=== PATIENT | female | born 1970 | race African-American/Black ===

== ENCOUNTER 2017-01-29 03:11 | Inpatient (IN) | payer MEDICARE, MEDICAID ==
[~2017-01-29] VITALS: Ht 160 cm; Wt 116.6 kg
[~2017-01-29 03:11] MED LIST: BENA40TA3 PO; CARI350T PO; HYDR-2510 PO; METF500T4 PO; TOPXL5 PO
[2017-01-29] MEDS ORDERED: METHYLPREDNISOLONE SOD SUCC 125 MG/2 ML VIAL IV STA (03:36)
[2017-01-29] MEDS ORDERED: IPRATROPIUM BROMIDE (0.02%) 0.5MG/2.5ML NEB HHN STA (03:36)
[2017-01-29] MEDS ORDERED: ALBUTEROL (0.083%) 2.5MG/3ML NEB HHN STA (03:36)
[2017-01-29] MEDS ORDERED: NITROGLYCERIN OINT 1GM/INCH UDPKT TD STA (03:36)
[2017-01-29] MEDS ORDERED: MAGNESIUM 2 G PREMIX 50 ML IV ONE (03:45)
[2017-01-29 04:06] LABS: BASOPHILS % 0.9 % (0.0-2.0); EOSINOPHILS % 0.3 % (0.0-5.0); HEMATOCRIT. 40.6 % (36.0-48.0); HEMOGLOBIN. 13.3 g/dL (12.0-16.0); MEAN CORPUSCULAR HEMOGLOBIN 28.2 pg (28.0-32.0); MEAN CORPUSCULAR HGB CONC 32.7 g/dL (31.0-37.0); MEAN CORPUSCULAR VOLUME 86.5 fL (81.0-99.0); MEAN PLATELET VOLUME 8.1 fl (7.4-10.4); MONOCYTES % 10.1 % (2.0-8.0); NEUTROPHILS % 80.7 % (40.0-76.0); PLATELET 262 x1000/uL (130-400); RED BLOOD CELL COUNT 4.69 mill/uL (4.2-5.4); WHITE BLOOD COUNT 9.4 x1000/uL (4.5-11.0)
[2017-01-29 04:13] LABS: PROTHROMBIN TIME 10.3 sec
[2017-01-29 04:15] LABS: HCG SCREEN NEGATIVE
[2017-01-29 04:19] LABS: CLARITY URINE CLEAR (CLEAR); COLOR URINE YELLOW (YELLOW); GLUCOSE URINE NEGATIVE (NEGATIVE); KETONES URINE NEGATIVE (NEGATIVE); LEUKOCYTE ESTERASE URINE NEGATIVE (NEGATIVE); NITRITE URINE NEGATIVE (NEGATIVE); OCCULT BLOOD URINE NEGATIVE (NEGATIVE); PH URINE 5.5 (4.5-8.0); PROTEIN URINE NEGATIVE (NEGATIVE); SPECIFIC GRAVITY URINE 1.007 (1.005-1.030); UROBILINOGEN URINE 0.2 E.U./dL (0.2-1.0)
[2017-01-29 04:29] LABS: ALANINE AMINOTRANSFERASE 45 IU/L (13-61); ALBUMIN 3.2 g/dL (3.4-5.0); ANION GAP 13; CALCIUM 8.4 mg/dL (8.5-10.1); CARBON DIOXIDE 28 mEq/L (21-32); CHLORIDE 104 mEq/L (98-107); INDEX HEMOLYSI 1 (1-3); INDEX ICTERIC 1 (1-4); INDEX LIPEMIC 1 (1-3); LIPASE 635 IU/L (73-393); TROPONIN I 0.09 ng/mL (0.00-0.04); UREA NITROGEN BLOOD 34 mg/dL (7-21); eGFR 33 mL/min (>60)
[2017-01-29 04:37] LABS: NT PRO B-TYPE NATRIURETIC PEP 3995 pg/mL (5-125)
[2017-01-29] MEDS ORDERED: FUROSEMIDE 40MG/4ML VIAL IVP ONE (05:00)
[2017-01-29] MEDS ORDERED: LORAZEPAM 2MG/ML CPJ IV ONE (05:00)
[2017-01-29] MEDS ORDERED: ASPIRIN 325MG TABLET PO ONE (05:15)
[2017-01-29] MEDS ORDERED: LEVOFLOXACIN 500MG PREMIX 100 ML IV ONE (05:30)
[2017-01-29] MEDS ORDERED: HYDRALAZINE 20MG/ML VIAL IV ONE (08:00)
[2017-01-29] MEDS ORDERED: LORAZEPAM 2MG/ML CPJ IV PRN (08:15)
[2017-01-29] MEDS ORDERED: CLONIDINE 0.2MG TABLET PO ONE (08:15)
[2017-01-29] MEDS ORDERED: ACETAMINOPHEN 325MG TABLET PO PRN (08:15)
[2017-01-29] MEDS ORDERED: NA PHOS,M-B/NA PHOS,DI-BA ENEMA 118ML PR PRN (08:15)
[2017-01-29] MEDS ORDERED: MAGNESIUM/ALUMINUM HYDROXIDE/SIMETHICONE 30ML UDC PO PRN (08:15)
[2017-01-29] MEDS ORDERED: DIPHENHYDRAMINE 50MG/ML VIAL IV PRN (08:15)
[2017-01-29] MEDS ORDERED: IPRATROPIUM/ALBUTEROL 0.5-3(2.5)MG/3ML NEB INH PRN (08:15)
[2017-01-29 09:20] LABS: *AMPHETAMINES SCREEN URINE NEGATIVE (NEGATIVE); *BARBITURATES SCREEN URINE NEGATIVE (NEGATIVE); *BENZODIAZEPINES SCREEN URINE NEGATIVE (NEGATIVE); CANNABINOID URINE SCREEN NEGATIVE (NEGATIVE); ECSTASY MDMA SCREEN URINE NEGATIVE (NEGATIVE); METHADONE URINE SCREEN NEGATIVE (NEGATIVE); OPIATES URINE SCREEN NEGATIVE (NEGATIVE); PHENCYCLIDINE URINE SCREEN NEGATIVE (NEGATIVE)
[2017-01-29 09:21] LABS: *COCAINE SCREEN URINE PRESUMTIVE POSITIVE (NEGATIVE)
[2017-01-29] MEDS ORDERED: HYDROCHLOROTHIAZIDE 50MG TABLET PO SCH (12:00)
[2017-01-29 12:30] LABS: CALCIUM 8.4 mg/dL (8.5-10.1)
[2017-01-29] MEDS ORDERED: METOPROLOL TARTRATE 25MG TABLET PO SCH (13:00)
[2017-01-29] MEDS: FUROSEMIDE 40MG/4ML VIAL IV SCH (13:50)
[2017-01-29] MEDS: HYDROMORPHONE HCL/PF 2MG/ML CPJ IV PRN (13:50)
[2017-01-29] MEDS: ASPIRIN 81MG EC TABLET PO SCH (13:50)
[2017-01-29] MEDS: ENOXAPARIN 40MG/0.4ML SYR SUBCUT SCH (13:52)
[2017-01-29] MEDS ORDERED: MEDICATION NOT ON FORMULARY EA (Benazepril Hcl 40 MG) PO SCH (17:00)
[2017-01-29] MEDS ORDERED: METFORMIN HCL 500MG TABLET PO SCH (17:15)
[2017-01-29] MEDS: ONDANSETRON HCL 4MG/2ML VIAL IV PRN (19:17)
[2017-01-29] MEDS: CARISOPRODOL 350 MG TABLET PO SCH (20:43)
[2017-01-29] MEDS ORDERED: LOSA50TA20 PO (20:58)
[2017-01-29] MEDS ORDERED: THROAT LOZENGES-BENZOCAINE/MENTH/CETYLPYRD CL LOZENGES MM PRN (21:00)
[2017-01-29] MEDS: BLOOD SUGAR DIAGNOSTIC STRIP TEST SCH (21:00)
[2017-01-29] MEDS: INSULIN LISPRO 100 UNITS/ML SUBCUT SCH (21:00)
[2017-01-29] MEDS ORDERED: BENAZEPRIL 20MG TABLET PO SCH (21:00)
[2017-01-29] MEDS ORDERED: DEXTROSE 50% WATER 50ML SYRINGE IV PRN (21:00)
[2017-01-29] MEDS: LOSARTAN POTASSIUM 50 MG TABLET PO SCH (21:04)
[2017-01-30 00:14] LABS: CREATINE KINASE MB FRACTION 3.2 ng/mL (0.5-3.6); TROPONIN I 0.08 ng/mL (0.00-0.04)
[2017-01-30] MEDS: CLONIDINE 0.1MG TABLET PO PRN ×2 (00:15→20:10)
[2017-01-30] MEDS ORDERED: LEVOFLOXACIN 500MG PREMIX 100 ML IV SCH (05:30)
[2017-01-30] MEDS: BLOOD SUGAR DIAGNOSTIC STRIP TEST SCH ×4 (05:54→20:16)
[2017-01-30] MEDS: INSULIN LISPRO 100 UNITS/ML SUBCUT SCH ×4 (06:29→20:16)
[2017-01-30 06:45] LABS: BASOPHILS % 0.2 % (0.0-2.0); EOSINOPHILS % 0.1 % (0.0-5.0); HEMATOCRIT. 42.9 % (36.0-48.0); HEMOGLOBIN. 13.6 g/dL (12.0-16.0); LYMPHOCYTES % 7.5 % (20.0-50.0); MEAN CORPUSCULAR HEMOGLOBIN 27.9 pg (28.0-32.0); MEAN CORPUSCULAR HGB CONC 31.8 g/dL (31.0-37.0); MEAN PLATELET VOLUME 8.7 fl (7.4-10.4); MONOCYTES % 9.9 % (2.0-8.0); NEUTROPHILS % 82.3 % (40.0-76.0); PLATELET 243 x1000/uL (130-400); RED BLOOD CELL COUNT 4.87 mill/uL (4.2-5.4); WHITE BLOOD COUNT 11.4 x1000/uL (4.5-11.0)
[2017-01-30 06:50] LABS: ALBUMIN 2.9 g/dL (3.4-5.0); ANION GAP 17; CALCIUM 9.1 mg/dL (8.5-10.1); CARBON DIOXIDE 31 mEq/L (21-32); CHLORIDE 94 mEq/L (98-107); CREATINE KINASE 228 IU/L (26-192); CREATINE KINASE MB FRACTION 2.7 ng/mL (0.5-3.6); HDL CHOLESTEROL 63 mg/dL (40-59); INDEX HEMOLYSI 1 (1-3); INDEX ICTERIC 1 (1-4); INDEX LIPEMIC 1 (1-3); T4 FREE 1.02 ng/dL (0.76-1.46); UREA NITROGEN BLOOD 38 mg/dL (7-21); eGFR 33 mL/min (>60)
[2017-01-30 06:56] LABS: ALANINE AMINOTRANSFERASE 37 IU/L (13-61); LDL CHOLESTEROL 106 mg/dL (5-100); THYROID STIMULATING HORMONE 0.29 uIU/mL (0.36-3.74); TRIGLYCERIDE 68 mg/dL (0-150); TROPONIN I 0.09 ng/mL (0.00-0.04)
[2017-01-30] MEDS: ASPIRIN 81MG EC TABLET PO SCH (08:21)
[2017-01-30] MEDS: FUROSEMIDE 40MG/4ML VIAL IV SCH (08:21)
[2017-01-30] MEDS: ENOXAPARIN 40MG/0.4ML SYR SUBCUT SCH (08:22)
[2017-01-30] MEDS: HYDROCODONE/ACETAMINOPHEN 10/325MG TABLET PO PRN (10:26)
[2017-01-30 15:19] LABS: CREATINE KINASE MB FRACTION 1.4 ng/mL (0.5-3.6); TROPONIN I 0.1 ng/mL (0.00-0.04)
[2017-01-30] MEDS: LOSARTAN POTASSIUM 50 MG TABLET PO SCH (18:21)
[2017-01-30] MEDS: CARISOPRODOL 350 MG TABLET PO SCH (20:09)
[2017-01-31] MEDS: ONDANSETRON HCL 4MG/2ML VIAL IV PRN ×2 (01:07→20:37)
[2017-01-31] MEDS: CLONIDINE 0.1MG TABLET PO PRN (04:17)
[2017-01-31] MEDS: INSULIN LISPRO 100 UNITS/ML SUBCUT SCH ×4 (06:14→20:50)
[2017-01-31] MEDS: BLOOD SUGAR DIAGNOSTIC STRIP TEST SCH ×4 (06:14→20:41)
[2017-01-31 06:33] LABS: BASOPHILS % 0.4 % (0.0-2.0); EOSINOPHILS % 0.9 % (0.0-5.0); HEMATOCRIT. 41.7 % (36.0-48.0); HEMOGLOBIN. 13.6 g/dL (12.0-16.0); LYMPHOCYTES % 21.1 % (20.0-50.0); MEAN CORPUSCULAR HEMOGLOBIN 28.6 pg (28.0-32.0); MEAN CORPUSCULAR HGB CONC 32.6 g/dL (31.0-37.0); MEAN CORPUSCULAR VOLUME 87.7 fL (81.0-99.0); MEAN PLATELET VOLUME 8.7 fl (7.4-10.4); MONOCYTES % 13.6 % (2.0-8.0); PLATELET 233 x1000/uL (130-400); RED BLOOD CELL COUNT 4.75 mill/uL (4.2-5.4); RED CELL DISTRIBUTION WIDTH 14.4 % (11.6-14.6)
[2017-01-31 06:44] LABS: CALCIUM 9.4 mg/dL (8.5-10.1)
[2017-01-31] MEDS: DOCUSATE SODIUM 100MG CAPSULE PO PRN (06:47)
[2017-01-31] MEDS: FUROSEMIDE 40MG/4ML VIAL IV SCH (09:00)
[2017-01-31] MEDS: GUAIFENESIN 200MG/10ML SUGAR FREE UDC PO PRN ×2 (09:49→15:12)
[2017-01-31] MEDS: LEVOFLOXACIN 500MG PREMIX 100 ML IV SCH (09:50)
[2017-01-31] MEDS: ASPIRIN 81MG EC TABLET PO SCH (09:50)
[2017-01-31] MEDS: ENOXAPARIN 40MG/0.4ML SYR SUBCUT SCH (09:50)
[2017-01-31] MEDS: FUROSEMIDE 40MG TABLET PO SCH (15:12)
[2017-01-31] MEDS: LOSARTAN POTASSIUM 50 MG TABLET PO SCH (17:45)
[2017-01-31] MEDS: HYDROCODONE/ACETAMINOPHEN 10/325MG TABLET PO PRN (17:53)
[2017-01-31] MEDS: CARISOPRODOL 350 MG TABLET PO SCH (20:37)
[2017-02-01] MEDS: HYDROMORPHONE HCL/PF 2MG/ML CPJ IV PRN (01:09)
[2017-02-01] MEDS: DOCUSATE SODIUM 100MG CAPSULE PO PRN (06:09)
[2017-02-01] MEDS: CLONIDINE 0.1MG TABLET PO PRN (06:10)
[2017-02-01] MEDS: INSULIN LISPRO 100 UNITS/ML SUBCUT SCH (06:12)
[2017-02-01] MEDS: BLOOD SUGAR DIAGNOSTIC STRIP TEST SCH (06:12)
[2017-02-01 07:00] LABS: CALCIUM 9.2 mg/dL (8.5-10.1)
[2017-02-01 07:13] LABS: BASOPHILS % 0.4 % (0.0-2.0); EOSINOPHILS % 1.4 % (0.0-5.0); HEMATOCRIT. 42.5 % (36.0-48.0); HEMOGLOBIN. 13.8 g/dL (12.0-16.0); LYMPHOCYTES % 26.7 % (20.0-50.0); MEAN CORPUSCULAR HEMOGLOBIN 28.5 pg (28.0-32.0); MEAN CORPUSCULAR HGB CONC 32.6 g/dL (31.0-37.0); MEAN CORPUSCULAR VOLUME 87.5 fL (81.0-99.0); MEAN PLATELET VOLUME 8.6 fl (7.4-10.4); MONOCYTES % 11.7 % (2.0-8.0); NEUTROPHILS % 59.8 % (40.0-76.0); PLATELET 235 x1000/uL (130-400); RED BLOOD CELL COUNT 4.86 mill/uL (4.2-5.4); WHITE BLOOD COUNT 7.3 x1000/uL (4.5-11.0)
[2017-02-01] MEDS ORDERED: CLONIDINE 0.2MG TABLET PO SCH (08:45)
[2017-02-01] MEDS: ASPIRIN 81MG EC TABLET PO SCH (08:54)
[2017-02-01] MEDS: FUROSEMIDE 40MG TABLET PO SCH (08:54)
[2017-02-01] MEDS: LEVOFLOXACIN 500MG PREMIX 100 ML IV SCH (08:55)
[2017-02-01] MEDS: ENOXAPARIN 40MG/0.4ML SYR SUBCUT SCH (08:55)
[2017-02-01 10:23] VITALS: BP 130/88
[2017-02-01] MEDS ORDERED: LOSARTAN POTASSIUM 100 MG TABLET PO SCH (11:00)
== END 2017-02-01 11:30 | disposition home or self-care (01) | DRG 177 ==
LOC: ER 04:05 → 5WST 06:01
PROVIDERS: ADMIT Internal Medicine; ATTEND Internal Medicine
DX: J69.0 Pneumonitis due to inhalation of food and vomit (principal); K85.90 Acute pancreatitis without necrosis or infection, unspecified; I50.23 Acute on chronic systolic (congestive) heart failure; I13.0 Hypertensive heart and chronic kidney disease with heart failure and stage 1 through stage 4 chronic kidney disease, or unspecified chronic kidney disease; N17.9 Acute kidney failure, unspecified; I24.9 Acute ischemic heart disease, unspecified; I42.9 Cardiomyopathy, unspecified; N18.9 Chronic kidney disease, unspecified; J45.909 Unspecified asthma, uncomplicated; M19.90 Unspecified osteoarthritis, unspecified site; E11.22 Type 2 diabetes mellitus with diabetic chronic kidney disease; E88.81 Metabolic syndrome and other insulin resistance; E78.5 Hyperlipidemia, unspecified; G47.33 Obstructive sleep apnea (adult) (pediatric); I25.2 Old myocardial infarction; Z82.49 Family history of ischemic heart disease and other diseases of the circulatory system; Z83.3 Family history of diabetes mellitus
CPT/HCPCS: 36415; 51702; 71010; 80048; 80053; 80061; 80305; 81003; 82550; 82553; 82962; 83605; 83690; 83880; 84439; 84443; 84484; 84703; 85025; 85610; 87040; 93005; 93306; 94640; 96365; 96367; 96375; 99291; G0482; J0360; J1170; J1650; J1815; J1940; J1956; J2060; J2405; J2930; J3475; J7611; J7620

== ENCOUNTER → 2017-07-27 | Day surgery (SDC) | payer MEDICARE, MEDICAID ==
[~2017-07-27] VITALS: Ht 160 cm; Wt 116.1 kg
[~2017-07-27] MED LIST changes: +CLON0.1T PO; +FURO80TA87 PO; +GLIP5TAB12 PO; +HYDR-519 PO; +LOSA50TA20 PO; +SODIUM CHLORIDE 0.9% 1,000 ML IV SCH
[2017-07-27 12:40] LABS: BASOPHILS % 0.7 % (0.0-2.0); EOSINOPHILS % 0.5 % (0.0-5.0); LYMPHOCYTES % 17.3 % (20.0-50.0); MEAN CORPUSCULAR HEMOGLOBIN 27.9 pg (28.0-32.0); MEAN CORPUSCULAR VOLUME 85.6 fL (81.0-99.0); MEAN PLATELET VOLUME 8.1 fl (7.4-10.4); MONOCYTES % 7.7 % (2.0-8.0); NEUTROPHILS % 73.8 % (40.0-76.0); PLATELET 292 x1000/uL (130-400); RED BLOOD CELL COUNT 4.32 mill/uL (4.2-5.4); RED CELL DISTRIBUTION WIDTH 15.1 % (11.6-14.6)
[2017-07-27 12:46] LABS: PARTIAL THROMBOPLASTIN TIME 24.7 sec (23.4-31.0); PROTHROMBIN TIME 10.9 sec (9.4-11.6)
[2017-07-27 13:02] LABS: HCG SCREEN NEGATIVE
[2017-07-27 13:18] LABS: UCG SCREEN NEGATIVE
== END | disposition home or self-care (01) ==
LOC: OR 13:41
PROVIDERS: ATTEND Obstetrics & Gynecology
DX: D25.9 Leiomyoma of uterus, unspecified (principal); Z53.9 Procedure and treatment not carried out, unspecified reason
CPT/HCPCS: 36415; 81025; 82962; 84132; 84703; 85025; 85610; 85730; 86850; 86900; 86901; J7030

== ENCOUNTER 2017-10-09 09:54 | Emergency (ER) | payer MEDICARE, MEDICAID ==
[~2017-10-09] VITALS: Ht 167.6 cm; Wt 85.0 kg
[~2017-10-09 09:54] MED LIST changes: -SODIUM CHLORIDE 0.9% 1,000 ML IV SCH
[2017-10-09 10:28] LABS: HEMOGLOBIN. 10.5 g/dL (12.0-16.0); MEAN CORPUSCULAR HEMOGLOBIN 25.9 pg (28.0-32.0); MEAN CORPUSCULAR VOLUME 81.7 fL (81.0-99.0); MEAN PLATELET VOLUME 7.5 fl (7.4-10.4); PLATELET 287 x1000/uL (130-400); RED BLOOD CELL COUNT 4.04 mill/uL (4.2-5.4); RED CELL DISTRIBUTION WIDTH 16.1 % (11.6-14.6)
[2017-10-09 10:34] LABS: PROTHROMBIN TIME 10.4 sec (9.4-11.6)
[2017-10-09 10:41] LABS: CARBON DIOXIDE 24 mEq/L (21-32); CHLORIDE 112 mEq/L (98-107)
[2017-10-09] MEDS ORDERED: IPRATROPIUM BROMIDE (0.02%) 0.5MG/2.5ML NEB HHN STA (10:41)
[2017-10-09] MEDS ORDERED: METHYLPREDNISOLONE SOD SUCC 125 MG/2 ML VIAL IV STA (10:41)
[2017-10-09 10:45] LABS: TROPONIN I 0.02 ng/mL (0.00-0.04)
[2017-10-09] MEDS ORDERED: KETOROLAC 15MG/ML VIAL IV ONE (10:45)
[2017-10-09] MEDS: ALBUTEROL (0.083%) 2.5MG/3ML NEB HHN SCH (11:05)
[2017-10-09 11:21] LABS: PLATELET ESTIMATE NORMAL
[2017-10-09 14:22] VITALS: BP 157/94
== END 2017-10-09 14:23 | disposition home or self-care (01) ==
LOC: ER 09:54
DX: J45.901 Unspecified asthma with (acute) exacerbation (principal); B34.9 Viral infection, unspecified; M79.1 Myalgia; I51.7 Cardiomegaly; E11.22 Type 2 diabetes mellitus with diabetic chronic kidney disease; I13.0 Hypertensive heart and chronic kidney disease with heart failure and stage 1 through stage 4 chronic kidney disease, or unspecified chronic kidney disease; N18.9 Chronic kidney disease, unspecified; D63.1 Anemia in chronic kidney disease; I45.10 Unspecified right bundle-branch block; Z98.890 Other specified postprocedural states
CPT/HCPCS: 36415; 71045; 80053; 83880; 84484; 85025; 85610; 87804; 93005; 94640; 96374; 96375; 99285; J1885; J2930; J7611

== ENCOUNTER 2018-01-20 08:21 | Inpatient (IN) | payer MEDICARE, MEDICAID ==
[~2018-01-20] VITALS: Ht 157.5 cm; Wt 121.6 kg
[2018-01-20] MEDS ORDERED: IPRATROPIUM BROMIDE (0.02%) 0.5MG/2.5ML NEB HHN STA (09:00)
[2018-01-20] MEDS ORDERED: ALBUTEROL (0.083%) 2.5MG/3ML NEB HHN STA (09:00)
[2018-01-20 09:32] LABS: BASOPHILS % 1.1 % (0.0-2.0); EOSINOPHILS % 1.9 % (0.0-5.0); LYMPHOCYTES % 19.6 % (20.0-50.0); MEAN CORPUSCULAR HEMOGLOBIN 27.1 pg (28.0-32.0); MEAN CORPUSCULAR VOLUME 85.1 fL (81.0-99.0); MEAN PLATELET VOLUME 8.3 fl (7.4-10.4); MONOCYTES % 9.4 % (2.0-8.0); PLATELET 268 x1000/uL (130-400); RED BLOOD CELL COUNT 4.81 mill/uL (4.2-5.4); RED CELL DISTRIBUTION WIDTH 17.8 % (11.6-14.6)
[2018-01-20 09:34] LABS: CHLORIDE 109 mEq/L (98-107)
[2018-01-20 09:37] LABS: PROTHROMBIN TIME 10.9 sec (9.4-11.6)
[2018-01-20] MEDS ORDERED: FUROSEMIDE 40MG/4ML VIAL IVP ONE (10:15)
[2018-01-20 11:15] LABS: BG BASE EXCESS -0.7 mmol/L (-2.0-2.0); BG CARBOXYHEMOGLOBIN 1.5 % (0.5-1.5); BG DEOXYHEMOGLOBIN 6.9 % (0.0-5.0); BG HCO3 ACT 23.2 mmol/L (22.0-26.0); BG METHEMOGLOBIN 0.3 % (0.0-1.5); BG OXYHEMOGLOBIN 91.3 % (94.0-97.0); BG PCO2 35.8 mmHg (35.0-45.0); BG PH 7.429 (7.350-7.450); BG PO2 68.4 mmHg (75.0-100.0); BG SAMPLE SITE RIGHT BRACHIAL; BG TOTAL HEMOGLOBIN 13.4 g/dL (12.0-18.0); BG VENT MODE ROOM AIR
[2018-01-20] MEDS ORDERED: ENALAPRIL 2.5MG/2ML VIAL 2ML IV ONE (12:15)
[2018-01-20] MEDS ORDERED: HYDRALAZINE HCL 50MG TABLET PO ONE (13:15)
[2018-01-20 21:52] VITALS: BP 170/95
[2018-01-20] MEDS ORDERED: NA PHOS,M-B/NA PHOS,DI-BA ENEMA 118ML PR PRN (23:00)
[2018-01-20] MEDS ORDERED: DIPHENHYDRAMINE 50MG/ML VIAL IV PRN (23:00)
[2018-01-20] MEDS ORDERED: MORPHINE SULFATE 4 MG/ML CPJ (NOT FOR IM USE) IV PRN (23:00)
[2018-01-20] MEDS ORDERED: MAGNESIUM/ALUMINUM HYDROXIDE/SIMETHICONE 30ML UDC PO PRN (23:00)
[2018-01-20] MEDS ORDERED: GUAIFENESIN 200MG/10ML SUGAR FREE UDC PO PRN (23:00)
[2018-01-20] MEDS ORDERED: ACETAMINOPHEN 325MG TABLET PO PRN (23:00)
[2018-01-20] MEDS ORDERED: ONDANSETRON HCL 4MG/2ML VIAL IV PRN (23:00)
[2018-01-20] MEDS ORDERED: LORAZEPAM 0.5MG TABLET PO PRN (23:00)
[2018-01-21] VITALS: BP 190/94
[2018-01-21] MEDS: CLONIDINE 0.1MG TABLET PO PRN ×3 (00:05→23:02)
[2018-01-21] MEDS: METHYLPREDNISOLONE SOD SUCC 125 MG/2 ML VIAL IV SCH ×3 (00:05→12:42)
[2018-01-21] MEDS ORDERED: DEXTROSE 50% WATER 50ML SYRINGE IV PRN (00:15)
[2018-01-21 04:00] VITALS: BP 175/104
[2018-01-21] MEDS: BLOOD SUGAR DIAGNOSTIC STRIP TEST SCH ×4 (05:41→20:15)
[2018-01-21] MEDS: INSULIN LISPRO 100 UNITS/ML SUBCUT SCH ×4 (05:43→20:25)
[2018-01-21 05:47] LABS: HEMATOCRIT. 39.9 % (36.0-48.0); HEMOGLOBIN. 12.8 g/dL (12.0-16.0); MEAN CORPUSCULAR HEMOGLOBIN 27.3 pg (28.0-32.0); MEAN CORPUSCULAR VOLUME 84.9 fL (81.0-99.0); MEAN PLATELET VOLUME 8.2 fl (7.4-10.4); PLATELET 288 x1000/uL (130-400); RED CELL DISTRIBUTION WIDTH 17.5 % (11.6-14.6)
[2018-01-21] MEDS: HYDROCODONE/ACETAMINOPHEN 10/325MG TABLET PO PRN ×2 (05:48→14:29)
[2018-01-21 07:36] LABS: CHLORIDE 106 mEq/L (98-107)
[2018-01-21 07:56] LABS: HDL CHOLESTEROL 49 mg/dL (40-59); T4 FREE 1.22 ng/dL (0.76-1.46)
[2018-01-21 07:57] LABS: LDL CHOLESTEROL 89 mg/dL (5-100)
[2018-01-21 08:00] VITALS: BP 168/76
[2018-01-21] MEDS ORDERED: ASPIRIN 81MG EC TABLET PO SCH (09:00)
[2018-01-21] MEDS: DOCUSATE SODIUM 100MG CAPSULE PO PRN ×2 (09:45→18:11)
[2018-01-21] MEDS: FUROSEMIDE 40MG/4ML VIAL IV SCH (09:45)
[2018-01-21] MEDS: ENOXAPARIN 30MG/0.3ML SYR SUBCUT SCH ×2 (09:46→20:22)
[2018-01-21 12:00] VITALS: BP 175/124
[2018-01-21 12:20] LABS: PLATELET ESTIMATE NORMAL
[2018-01-21] MEDS: CARVEDILOL 3.125 MG TABLET PO SCH ×2 (12:43→20:12)
[2018-01-21] MEDS: LOSARTAN POTASSIUM 50 MG TABLET PO SCH (12:43)
[2018-01-21] MEDS ORDERED: HYDR-4135 PO (13:03)
[2018-01-21] MEDS ORDERED: METO100T16 PO (13:03)
[2018-01-21 16:00] VITALS: BP 186/94
[2018-01-21 16:42] LABS: CLARITY URINE CLEAR (CLEAR); COLOR URINE YELLOW (YELLOW); KETONES URINE NEGATIVE (NEGATIVE); LEUKOCYTE ESTERASE URINE NEGATIVE (NEGATIVE); NITRITE URINE NEGATIVE (NEGATIVE); OCCULT BLOOD URINE NEGATIVE (NEGATIVE); PH URINE 6.5 (4.5-8.0); PROTEIN URINE NEGATIVE (NEGATIVE); SPECIFIC GRAVITY URINE 1.012 (1.005-1.030)
[2018-01-21 17:00] LABS: *AMPHETAMINES SCREEN URINE NEGATIVE (NEGATIVE); *BARBITURATES SCREEN URINE NEGATIVE (NEGATIVE); *BENZODIAZEPINES SCREEN URINE NEGATIVE (NEGATIVE)
[2018-01-21 17:01] LABS: CANNABINOID URINE SCREEN NEGATIVE (NEGATIVE); METHADONE URINE SCREEN NEGATIVE (NEGATIVE); PHENCYCLIDINE URINE SCREEN NEGATIVE (NEGATIVE)
[2018-01-21 17:08] LABS: *COCAINE SCREEN URINE PRESUMTIVE POSITIVE (NEGATIVE); OPIATES URINE SCREEN PRESUMTIVE POSITIVE (NEGATIVE)
[2018-01-21 18:07] LABS: CREATINE KINASE MB FRACTION 2.2 ng/mL (0.5-3.6)
[2018-01-21 20:08] VITALS: BP 194/92
[2018-01-22] VITALS: BP 138/84
[2018-01-22 00:28] LABS: CREATINE KINASE MB FRACTION 1.6 ng/mL (0.5-3.6)
[2018-01-22] MEDS: BUDESONIDE 0.5MG/2ML NEB HHN SCH ×2 (01:54→09:50)
[2018-01-22] MEDS: IPRATROPIUM/ALBUTEROL 0.5-3(2.5)MG/3ML NEB INH PRN ×2 (01:54→09:50)
[2018-01-22 04:00] VITALS: BP 150/80
[2018-01-22] MEDS: BLOOD SUGAR DIAGNOSTIC STRIP TEST SCH ×2 (06:24→12:45)
[2018-01-22] MEDS: INSULIN LISPRO 100 UNITS/ML SUBCUT SCH ×2 (06:24→12:15)
[2018-01-22 07:40] LABS: CREATINE KINASE MB FRACTION 1.5 ng/mL (0.5-3.6)
[2018-01-22 08:00] VITALS: BP 174/107
[2018-01-22] MEDS ORDERED: ASPIRIN 81MG TABLET PO SCH (09:00)
[2018-01-22] MEDS: ENOXAPARIN 30MG/0.3ML SYR SUBCUT SCH (09:21)
[2018-01-22] MEDS: LOSARTAN POTASSIUM 50 MG TABLET PO SCH (09:22)
[2018-01-22] MEDS: FUROSEMIDE 40MG/4ML VIAL IV SCH (09:22)
[2018-01-22] MEDS: DOCUSATE SODIUM 100MG CAPSULE PO PRN (09:22)
[2018-01-22] MEDS: CARVEDILOL 3.125 MG TABLET PO SCH (09:23)
[2018-01-22 11:45] VITALS: BP 159/100
[2018-01-22 12:00] VITALS: BP 159/100
== END 2018-01-22 13:05 | disposition home or self-care (01) | DRG 291 ==
LOC: EDBEDREQ 10:29 → EDBEDREQTM 10:29 → ER 11:26 → 5WST 13:00 → ENRESERV 19:45 → 5WST 22:02
PROVIDERS: ADMIT Internal Medicine; ATTEND Internal Medicine
DX: I13.0 Hypertensive heart and chronic kidney disease with heart failure and stage 1 through stage 4 chronic kidney disease, or unspecified chronic kidney disease (principal); I50.43 Acute on chronic combined systolic (congestive) and diastolic (congestive) heart failure; J96.01 Acute respiratory failure with hypoxia; E46 Unspecified protein-calorie malnutrition; J44.1 Chronic obstructive pulmonary disease with (acute) exacerbation; Z68.42 Body mass index [BMI] 45.0-49.9, adult; E11.22 Type 2 diabetes mellitus with diabetic chronic kidney disease; E11.40 Type 2 diabetes mellitus with diabetic neuropathy, unspecified; E66.9 Obesity, unspecified; M19.90 Unspecified osteoarthritis, unspecified site; G89.4 Chronic pain syndrome; N18.9 Chronic kidney disease, unspecified; F17.210 Nicotine dependence, cigarettes, uncomplicated; Z83.3 Family history of diabetes mellitus; E78.5 Hyperlipidemia, unspecified; Z82.49 Family history of ischemic heart disease and other diseases of the circulatory system; I25.2 Old myocardial infarction; Z86.73 Personal history of transient ischemic attack (TIA), and cerebral infarction without residual deficits; Z79.899 Other long term (current) drug therapy; Z83.2 Family history of diseases of the blood and blood-forming organs and certain disorders involving the immune mechanism
CPT/HCPCS: 36415; 36600; 71045; 80053; 80061; 80305; 81003; 82375; 82550; 82553; 82805; 82962; 83036; 83880; 84439; 84443; 84484; 85025; 85379; 85610; 93005; 93306; 93970; 94640; 96374; 96375; 99285; J1200; J1650; J1815; J1940; J2930; J3490; J7611; J7620; J7626

== ENCOUNTER 2018-05-05 06:51 | Inpatient (IN) | payer MEDICARE, MEDICAID ==
[~2018-05-05] VITALS: Ht 152.9 cm; Wt 127.0 kg
[~2018-05-05 06:51] MED LIST changes: -BENA40TA3 PO; -CARI350T PO; -HYDR-2510 PO; +HYDR-4135 PO; -METF500T4 PO; +METO100T16 PO; -TOPXL5 PO
[2018-05-05] MEDS ORDERED: ASPIRIN 325MG EC TABLET PO ONE (07:30)
[2018-05-05] MEDS: NITROGLYCERIN 0.4MG TABLET SL SL PRN ×3 (07:41→08:33)
[2018-05-05 08:16] LABS: BASOPHILS % 0.8 % (0.0-2.0); EOSINOPHILS % 1.8 % (0.0-5.0); HEMOGLOBIN. 12.7 g/dL (12.0-16.0); MEAN CORPUSCULAR HEMOGLOBIN 26.6 pg (28.0-32.0); MEAN PLATELET VOLUME 8.5 fl (7.4-10.4); MONOCYTES % 10.9 % (2.0-8.0); NEUTROPHILS % 62.5 % (40.0-76.0); PLATELET 285 x1000/uL (130-400); RED BLOOD CELL COUNT 4.76 mill/uL (4.2-5.4)
[2018-05-05 08:22] LABS: CHLORIDE 110 mEq/L (98-107)
[2018-05-05 08:25] LABS: PROTHROMBIN TIME 10.8 sec (9.4-11.6)
[2018-05-05] MEDS ORDERED: ACETAMINOPHEN 650MG/20.3ML UDC PO ONE (09:15)
[2018-05-05] MEDS ORDERED: FUROSEMIDE 40MG/4ML VIAL IVP ONE (09:15)
[2018-05-05] MEDS ORDERED: LORAZEPAM 1MG TABLET PO ONE (09:15)
[2018-05-05 12:01] LABS: CLARITY URINE CLEAR (CLEAR); COLOR URINE YELLOW (YELLOW); KETONES URINE NEGATIVE (NEGATIVE); LEUKOCYTE ESTERASE URINE NEGATIVE (NEGATIVE); NITRITE URINE NEGATIVE (NEGATIVE); OCCULT BLOOD URINE NEGATIVE (NEGATIVE); PH URINE 6.5 (4.5-8.0); PROTEIN URINE NEGATIVE (NEGATIVE); SPECIFIC GRAVITY URINE 1.007 (1.005-1.030); UROBILINOGEN URINE 0.2 E.U./dL (0.2-1.0)
[2018-05-05 12:42] LABS: *AMPHETAMINES SCREEN URINE NEGATIVE (NEGATIVE); *BARBITURATES SCREEN URINE NEGATIVE (NEGATIVE); *BENZODIAZEPINES SCREEN URINE NEGATIVE (NEGATIVE); METHADONE URINE SCREEN NEGATIVE (NEGATIVE); OPIATES URINE SCREEN NEGATIVE (NEGATIVE)
[2018-05-05 12:43] LABS: CANNABINOID URINE SCREEN NEGATIVE (NEGATIVE); PHENCYCLIDINE URINE SCREEN NEGATIVE (NEGATIVE)
[2018-05-05 12:44] LABS: *COCAINE SCREEN URINE PRESUMTIVE POSITIVE (NEGATIVE)
[2018-05-05 13:30] VITALS: BP 198/117
[2018-05-05] MEDS ORDERED: KETOROLAC 30MG/ML VIAL IV PRN (14:00)
[2018-05-05] MEDS ORDERED: NA PHOS,M-B/NA PHOS,DI-BA ENEMA 118ML PR PRN (14:00)
[2018-05-05] MEDS ORDERED: DIPHENHYDRAMINE 50MG/ML VIAL IV PRN (14:00)
[2018-05-05] MEDS ORDERED: ACETAMINOPHEN 325MG TABLET PO PRN (14:00)
[2018-05-05] MEDS ORDERED: ZOLPIDEM TARTRATE 5MG TABLET PO PRN (14:00)
[2018-05-05] MEDS ORDERED: GUAIFENESIN 200MG/10ML SUGAR FREE UDC PO PRN (14:00)
[2018-05-05] MEDS ORDERED: DOCUSATE SODIUM 100MG CAPSULE PO PRN (14:00)
[2018-05-05] MEDS ORDERED: CLONIDINE 0.1MG TABLET PO PRN (14:00)
[2018-05-05] MEDS ORDERED: METOLAZONE 10MG TABLET PO NR (14:00)
[2018-05-05] MEDS ORDERED: IPRATROPIUM/ALBUTEROL 0.5-3(2.5)MG/3ML NEB INH PRN (14:00)
[2018-05-05] MEDS ORDERED: MAGNESIUM/ALUMINUM HYDROXIDE/SIMETHICONE 30ML UDC PO PRN (14:00)
[2018-05-05] MEDS ORDERED: NITROGLYCERIN 0.4MG TABLET SL SL PRN (14:00)
[2018-05-05] MEDS ORDERED: LORAZEPAM 0.5MG TABLET PO PRN (14:00)
[2018-05-05 14:25] VITALS: BP 189/118
[2018-05-05] MEDS: DILTIAZEM HCL 60MG TABLET PO SCH ×2 (14:28→17:39)
[2018-05-05] MEDS ORDERED: DEXTROSE 50% WATER 50ML SYRINGE IV PRN (14:30)
[2018-05-05] MEDS: ENOXAPARIN 30MG/0.3ML SYR SUBCUT SCH (14:31)
[2018-05-05] MEDS ORDERED: KETOROLAC 15MG/ML VIAL IV PRN (14:34)
[2018-05-05] MEDS ORDERED: ONDANSETRON 4MG ODT PO PRN ×2 (14:45)
[2018-05-05 15:30] VITALS: BP 189/117
[2018-05-05] MEDS: FUROSEMIDE 40MG/4ML VIAL IVP SCH (16:38)
[2018-05-05] MEDS: FAMOTIDINE 20MG TABLET PO SCH (16:38)
[2018-05-05] MEDS: SPIRONOLACTONE 25MG TABLET PO SCH (16:39)
[2018-05-05] MEDS: LISINOPRIL 20MG TABLET PO SCH ×2 (16:39→22:02)
[2018-05-05 16:45] LABS: CREATINE KINASE MB FRACTION 2.4 ng/mL (0.5-3.6)
[2018-05-05] MEDS: BLOOD SUGAR DIAGNOSTIC STRIP TEST SCH ×2 (16:55→21:00)
[2018-05-05] MEDS ORDERED: CLONIDINE 0.2MG TABLET PO PRN (17:00)
[2018-05-05] MEDS: INSULIN LISPRO 100 UNITS/ML SUBCUT SCH ×2 (17:03→22:04)
[2018-05-05 17:35] VITALS: BP 171/97
[2018-05-05 18:32] VITALS: BP 158/91
[2018-05-05 20:08] VITALS: BP 139/79
[2018-05-05] MEDS ORDERED: LISINOPRIL 20MG TABLET PO SCH (21:00)
[2018-05-05] MEDS: HYDRALAZINE HCL 50MG TABLET PO SCH (22:01)
[2018-05-05] MEDS: LEVETIRACETAM 500MG TABLET PO SCH (22:01)
[2018-05-05] MEDS: GUAIFENESIN 600MG ER TABLET PO SCH (22:02)
[2018-05-05 22:49] LABS: CREATINE KINASE MB FRACTION 2.2 ng/mL (0.5-3.6)
[2018-05-06 00:21] VITALS: BP 142/91
[2018-05-06 04:00] VITALS: BP 149/74
[2018-05-06] MEDS: BLOOD SUGAR DIAGNOSTIC STRIP TEST SCH ×4 (05:24→21:27)
[2018-05-06] MEDS: ENOXAPARIN 30MG/0.3ML SYR SUBCUT SCH ×2 (05:30→17:23)
[2018-05-06] MEDS: FUROSEMIDE 40MG/4ML VIAL IVP SCH ×2 (05:30→16:23)
[2018-05-06] MEDS: SPIRONOLACTONE 25MG TABLET PO SCH ×2 (05:31→17:22)
[2018-05-06] MEDS: DILTIAZEM HCL 60MG TABLET PO SCH ×4 (05:31→17:22)
[2018-05-06] MEDS: HYDRALAZINE HCL 50MG TABLET PO SCH ×3 (05:31→21:26)
[2018-05-06 08:00] VITALS: BP 131/59
[2018-05-06] MEDS: INSULIN LISPRO 100 UNITS/ML SUBCUT SCH ×4 (08:27→21:28)
[2018-05-06] MEDS: LEVETIRACETAM 500MG TABLET PO SCH ×2 (08:41→21:26)
[2018-05-06] MEDS: GUAIFENESIN 600MG ER TABLET PO SCH ×2 (08:41→21:26)
[2018-05-06] MEDS: ASPIRIN 325MG EC TABLET PO SCH (08:41)
[2018-05-06] MEDS: LISINOPRIL 20MG TABLET PO SCH ×2 (08:42→21:27)
[2018-05-06 12:00] VITALS: BP 133/67
[2018-05-06 16:00] VITALS: BP 128/64
[2018-05-06] MEDS: FAMOTIDINE 20MG TABLET PO SCH (17:22)
[2018-05-06 20:00] VITALS: BP 149/80
[2018-05-07] VITALS: BP 134/84
[2018-05-07] MEDS: DILTIAZEM HCL 60MG TABLET PO SCH ×2 (01:10→06:28)
[2018-05-07 04:00] VITALS: BP 143/79
[2018-05-07] MEDS: SPIRONOLACTONE 25MG TABLET PO SCH (06:28)
[2018-05-07] MEDS: HYDRALAZINE HCL 50MG TABLET PO SCH (06:29)
[2018-05-07] MEDS: FUROSEMIDE 40MG/4ML VIAL IVP SCH (06:29)
[2018-05-07] MEDS: ENOXAPARIN 30MG/0.3ML SYR SUBCUT SCH (06:29)
[2018-05-07] MEDS: BLOOD SUGAR DIAGNOSTIC STRIP TEST SCH (06:47)
[2018-05-07 07:08] LABS: BASOPHILS % 0.9 % (0.0-2.0); EOSINOPHILS % 2.5 % (0.0-5.0); HEMATOCRIT. 40.9 % (36.0-48.0); HEMOGLOBIN. 13.5 g/dL (12.0-16.0); MEAN CORPUSCULAR HEMOGLOBIN 27.2 pg (28.0-32.0); MEAN CORPUSCULAR VOLUME 82.6 fL (81.0-99.0); MEAN PLATELET VOLUME 8.7 fl (7.4-10.4); MONOCYTES % 13.6 % (2.0-8.0); PLATELET 285 x1000/uL (130-400); RED BLOOD CELL COUNT 4.95 mill/uL (4.2-5.4); RED CELL DISTRIBUTION WIDTH 17.8 % (11.6-14.6)
[2018-05-07] MEDS: INSULIN LISPRO 100 UNITS/ML SUBCUT SCH ×2 (07:49→08:28)
[2018-05-07 08:00] VITALS: BP 125/73
[2018-05-07] MEDS: ASPIRIN 325MG EC TABLET PO SCH (08:27)
[2018-05-07] MEDS: LEVETIRACETAM 500MG TABLET PO SCH (08:27)
[2018-05-07] MEDS: GUAIFENESIN 600MG ER TABLET PO SCH (08:27)
[2018-05-07] MEDS: LISINOPRIL 20MG TABLET PO SCH ×2 (08:28→08:29)
[2018-05-07 09:13] LABS: CHLORIDE 99 mEq/L (98-107)
[2018-05-07 10:25] VITALS: BP 136/79
[2018-05-07 10:30] VITALS: BP 137/49
== END 2018-05-07 12:03 | disposition home or self-care (01) | DRG 917 ==
LOC: ER 07:46 → EDBEDREQTM 11:08 → EDBEDREQ 11:08 → 7WST 11:08 → ENRESERV 12:04
PROVIDERS: ADMIT Internal Medicine; ATTEND Internal Medicine
DX: T40.5X1A Poisoning by cocaine, accidental (unintentional), initial encounter (principal); I50.43 Acute on chronic combined systolic (congestive) and diastolic (congestive) heart failure; J96.00 Acute respiratory failure, unspecified whether with hypoxia or hypercapnia; N17.0 Acute kidney failure with tubular necrosis; I13.0 Hypertensive heart and chronic kidney disease with heart failure and stage 1 through stage 4 chronic kidney disease, or unspecified chronic kidney disease; E44.1 Mild protein-calorie malnutrition; I42.9 Cardiomyopathy, unspecified; Z68.43 Body mass index [BMI] 50.0-59.9, adult; E11.22 Type 2 diabetes mellitus with diabetic chronic kidney disease; E11.65 Type 2 diabetes mellitus with hyperglycemia; Y92.89 Other specified places as the place of occurrence of the external cause; N18.9 Chronic kidney disease, unspecified; F14.10 Cocaine abuse, uncomplicated; F19.10 Other psychoactive substance abuse, uncomplicated; G40.909 Epilepsy, unspecified, not intractable, without status epilepticus; I25.2 Old myocardial infarction; Z79.4 Long term (current) use of insulin; Z82.49 Family history of ischemic heart disease and other diseases of the circulatory system; Z98.891 History of uterine scar from previous surgery; Z88.5 Allergy status to narcotic agent; Z79.899 Other long term (current) drug therapy
CPT/HCPCS: 36415; 71045; 80053; 80061; 80305; 81003; 82550; 82553; 82962; 83036; 83735; 83880; 84484; 85025; 85379; 85610; 93005; 93970; 96374; 97162; 97166; 99285; G0482; J1650; J1815; J1940

== ENCOUNTER 2019-03-16 08:11 | Inpatient (IN) | payer MEDICARE, MEDICAID ==
[~2019-03-16] VITALS: Ht 167.6 cm; Wt 115.7 kg
[~2019-03-16 08:11] MED LIST changes: -HYDR-519 PO; -LOSA50TA20 PO; +LOSA50TA41 PO
[2019-03-16] MEDS ORDERED: SODIUM CHLORIDE 0.9% 1,000 ML IV ONE (08:53)
[2019-03-16] MEDS ORDERED: LEVETIRACETAM 500MG PREMIX 100 ML IV ONE (09:00)
[2019-03-16 09:05] LABS: BASOPHILS % 0.7 % (0.0-2.0); EOSINOPHILS % 1.6 % (0.0-5.0); HEMATOCRIT. 42.4 % (36.0-48.0); HEMOGLOBIN. 13.8 g/dL (12.0-16.0); LYMPHOCYTES % 19.7 % (20.0-50.0); MEAN CORPUSCULAR HEMOGLOBIN 29.4 pg (28.0-32.0); MEAN PLATELET VOLUME 8.5 fl (7.4-10.4); MONOCYTES % 11.1 % (2.0-8.0); NEUTROPHILS % 66.9 % (40.0-76.0); PLATELET 215 x1000/uL (130-400); RED BLOOD CELL COUNT 4.71 mill/uL (4.2-5.4)
[2019-03-16 09:10] LABS: CHLORIDE 112 mEq/L (98-107)
[2019-03-16 09:16] LABS: ETHANOL BLOOD < 10 mg/dL
[2019-03-16] MEDS ORDERED: HYDRALAZINE 20MG/ML VIAL IV ONE ×3 (10:15→14:15)
[2019-03-16 10:54] LABS: CLARITY URINE CLEAR (CLEAR); COLOR URINE YELLOW (YELLOW); KETONES URINE NEGATIVE (NEGATIVE); LEUKOCYTE ESTERASE URINE NEGATIVE (NEGATIVE); NITRITE URINE NEGATIVE (NEGATIVE); OCCULT BLOOD URINE NEGATIVE (NEGATIVE); PH URINE 5.5 (4.5-8.0); PROTEIN URINE 2+ (NEGATIVE); UROBILINOGEN URINE 0.2 E.U./dL (0.2-1.0)
[2019-03-16 11:10] LABS: *BENZODIAZEPINES SCREEN URINE NEGATIVE (NEGATIVE); METHADONE URINE SCREEN NEGATIVE (NEGATIVE)
[2019-03-16 11:11] LABS: *AMPHETAMINES SCREEN URINE NEGATIVE (NEGATIVE); *BARBITURATES SCREEN URINE NEGATIVE (NEGATIVE); OPIATES URINE SCREEN NEGATIVE (NEGATIVE); PHENCYCLIDINE URINE SCREEN NEGATIVE (NEGATIVE)
[2019-03-16 11:12] LABS: *COCAINE SCREEN URINE PRESUMTIVE POSITIVE (NEGATIVE); CANNABINOID URINE SCREEN PRESUMTIVE POSITIVE (NEGATIVE)
[2019-03-16 11:48] LABS: HCG SCREEN NEGATIVE
[2019-03-16] MEDS ORDERED: LORAZEPAM 2MG/ML CPJ IV ONE (14:15)
[2019-03-16] MEDS ORDERED: LABETALOL HCL 20MG/4ML CARPUJECT IV ONE (15:00)
[2019-03-16] MEDS ORDERED: METOPROLOL TARTRATE 100MG TABLET PO ONE (15:00)
[2019-03-16 15:45] VITALS: BP_SYST 133; BP_SYST 156; BP_DIAS 74; BP_DIAS 86
[2019-03-16] MEDS ORDERED: ENOXAPARIN 40MG/0.4ML SYR SUBCUT SCH ×2 (17:00→21:00)
[2019-03-16] MEDS ORDERED: LORAZEPAM 2MG/ML CPJ IV PRN (17:00)
[2019-03-16] MEDS ORDERED: ONDANSETRON HCL 4MG/2ML INJ IV PRN (17:00)
[2019-03-16] MEDS ORDERED: NA PHOS,M-B/NA PHOS,DI-BA ENEMA 118ML PR PRN (17:00)
[2019-03-16] MEDS ORDERED: DOCUSATE SODIUM 100MG CAPSULE PO PRN (17:00)
[2019-03-16] MEDS ORDERED: MAGNESIUM/ALUMINUM HYDROXIDE/SIMETHICONE 30ML UDC PO PRN (17:00)
[2019-03-16] MEDS ORDERED: GUAIFENESIN 200MG/10ML SUGAR FREE UDC PO PRN (17:00)
[2019-03-16] MEDS ORDERED: ACETAMINOPHEN 325MG TABLET PO PRN (17:00)
[2019-03-16] MEDS ORDERED: HYDROCODONE/ACETAMINOPHEN 10/325MG TABLET PO PRN (17:00)
[2019-03-16 20:00] VITALS: BP 166/83
[2019-03-16] MEDS: ENOXAPARIN 30MG/0.3ML SYR SUBCUT SCH (20:43)
[2019-03-16] MEDS: CLONIDINE 0.1MG TABLET PO PRN (20:43)
[2019-03-16] MEDS: SODIUM CHLORIDE 0.45% 1,000 ML IV SCH (22:10)
[2019-03-17] VITALS: BP 150/72
[2019-03-17 04:00] VITALS: BP 160/80
[2019-03-17 06:32] LABS: CHLORIDE 115 mEq/L (98-107)
[2019-03-17 06:42] LABS: BASOPHILS % 0.6 % (0.0-2.0); EOSINOPHILS % 1.1 % (0.0-5.0); HEMATOCRIT. 40.6 % (36.0-48.0); HEMOGLOBIN. 13.1 g/dL (12.0-16.0); LYMPHOCYTES % 20.3 % (20.0-50.0); MEAN CORPUSCULAR HEMOGLOBIN 29.1 pg (28.0-32.0); MEAN PLATELET VOLUME 8.7 fl (7.4-10.4); MONOCYTES % 11.3 % (2.0-8.0); NEUTROPHILS % 66.7 % (40.0-76.0); PLATELET 222 x1000/uL (130-400); RED BLOOD CELL COUNT 4.51 mill/uL (4.2-5.4); RED CELL DISTRIBUTION WIDTH 16.2 % (11.6-14.6)
[2019-03-17 06:52] LABS: HDL CHOLESTEROL 39 mg/dL (40-59); LDL CHOLESTEROL 80 mg/dL (5-100)
[2019-03-17 08:00] VITALS: BP 177/102
[2019-03-17] MEDS ORDERED: FUROSEMIDE 40MG/4ML VIAL IV SCH (09:00)
[2019-03-17] MEDS: ENOXAPARIN 30MG/0.3ML SYR SUBCUT SCH ×2 (09:10→21:00)
[2019-03-17] MEDS: ASPIRIN 81MG EC TABLET PO SCH (09:10)
[2019-03-17] MEDS: CLONIDINE 0.1MG TABLET PO PRN (09:13)
[2019-03-17 12:00] VITALS: BP 165/109
[2019-03-17] MEDS: IPRATROPIUM/ALBUTEROL 0.5-3(2.5)MG/3ML NEB INH PRN ×2 (12:50→16:50)
[2019-03-17] MEDS: SODIUM CHLORIDE 0.45% 1,000 ML IV SCH ×2 (15:21→22:40)
[2019-03-17 16:00] VITALS: BP 148/80
[2019-03-17] MEDS ORDERED: AMLO5TAB88 MT (17:46)
[2019-03-17] MEDS ORDERED: METF500T60 MT (17:46)
[2019-03-17] MEDS ORDERED: DEXTROSE 50% WATER 50ML SYRINGE IV PRN (19:45)
[2019-03-17 20:00] VITALS: BP 149/101
[2019-03-17] MEDS: BLOOD SUGAR DIAGNOSTIC STRIP TEST SCH (21:00)
[2019-03-17] MEDS: INSULIN LISPRO 100 UNITS/ML SUBCUT SCH (21:00)
[2019-03-18] VITALS: BP 173/98
[2019-03-18 04:00] VITALS: BP 179/91
[2019-03-18] MEDS: CLONIDINE 0.1MG TABLET PO PRN ×2 (05:17→12:25)
[2019-03-18 06:09] LABS: BASOPHILS % 0.9 % (0.0-2.0); EOSINOPHILS % 3.1 % (0.0-5.0); HEMATOCRIT. 42.1 % (36.0-48.0); HEMOGLOBIN. 13.9 g/dL (12.0-16.0); LYMPHOCYTES % 37.7 % (20.0-50.0); MEAN CORPUSCULAR HEMOGLOBIN 29.7 pg (28.0-32.0); MEAN CORPUSCULAR VOLUME 90.1 fL (81.0-99.0); MEAN PLATELET VOLUME 8.8 fl (7.4-10.4); NEUTROPHILS % 45.3 % (40.0-76.0); PLATELET 198 x1000/uL (130-400); RED BLOOD CELL COUNT 4.67 mill/uL (4.2-5.4); RED CELL DISTRIBUTION WIDTH 15.5 % (11.6-14.6)
[2019-03-18 08:03] VITALS: BP 142/97
[2019-03-18] MEDS: IPRATROPIUM/ALBUTEROL 0.5-3(2.5)MG/3ML NEB INH PRN (08:23)
[2019-03-18] MEDS: ENOXAPARIN 30MG/0.3ML SYR SUBCUT SCH (08:27)
[2019-03-18] MEDS: ASPIRIN 81MG EC TABLET PO SCH (08:27)
[2019-03-18] MEDS ORDERED: MEDICATION NOT ON FORMULARY EA (Amlodipine Besylate 1 TAB) MT SCH (09:00)
[2019-03-18] MEDS ORDERED: AMLODIPINE 5MG TABLET PO SCH (09:00)
[2019-03-18 12:00] VITALS: BP 164/106
[2019-03-18] MEDS: SODIUM CHLORIDE 0.45% 1,000 ML IV SCH (12:00)
[2019-03-18] MEDS: BLOOD SUGAR DIAGNOSTIC STRIP TEST SCH (12:10)
[2019-03-18] MEDS: INSULIN LISPRO 100 UNITS/ML SUBCUT SCH (12:14)
[2019-03-18 12:38] VITALS: BP 165/106
== END 2019-03-18 13:15 | disposition home or self-care (01) | DRG 100 ==
LOC: ER 08:11 → 8WST 12:33 → EDBEDREQ 12:37 → ENRESERV 14:21
PROVIDERS: ADMIT Internal Medicine; ATTEND Internal Medicine
DX: R56.9 Unspecified convulsions (principal); G92 Toxic encephalopathy; I13.0 Hypertensive heart and chronic kidney disease with heart failure and stage 1 through stage 4 chronic kidney disease, or unspecified chronic kidney disease; I50.9 Heart failure, unspecified; N18.9 Chronic kidney disease, unspecified; D64.9 Anemia, unspecified; I25.10 Atherosclerotic heart disease of native coronary artery without angina pectoris; F14.90 Cocaine use, unspecified, uncomplicated; I25.2 Old myocardial infarction; Z88.0 Allergy status to penicillin; Z79.899 Other long term (current) drug therapy; Z79.84 Long term (current) use of oral hypoglycemic drugs; Z98.891 History of uterine scar from previous surgery; Z86.73 Personal history of transient ischemic attack (TIA), and cerebral infarction without residual deficits; Z82.49 Family history of ischemic heart disease and other diseases of the circulatory system; Z88.5 Allergy status to narcotic agent
CPT/HCPCS: 36415; 80048; 80061; 80305; 80320; 82962; 84439; 84481; 84484; 84703; 92610; 93005; 94640; 96365; 99291; J0360; J1650; J1953; J2060; J3490; J7030; J7620; G0480

== ENCOUNTER 2019-11-26 12:41 | Inpatient (IN) | payer OTHER, MEDICAID ==
[~2019-11-26] VITALS: Ht 157.5 cm; Wt 101.2 kg
[~2019-11-26 12:41] MED LIST changes: +AMLO5TAB88 MT; -CLON0.1T PO; -FURO80TA87 PO; -GLIP5TAB12 PO; -HYDR-4135 PO; -LOSA50TA41 PO; +METF500T60 MT; -METO100T16 PO
[2019-11-26] MEDS ORDERED: NITROGLYCERIN OINT 1GM/INCH UDPKT TD ONE (13:30)
[2019-11-26] MEDS ORDERED: FUROSEMIDE 40MG/4ML VIAL IV ONE (13:30)
[2019-11-26 13:36] LABS: BASOPHILS % 0.7 % (0.0-2.0); EOSINOPHILS % 1.5 % (0.0-5.0); HEMATOCRIT. 40.4 % (36.0-48.0); HEMOGLOBIN. 13.3 g/dL (12.0-16.0); LYMPHOCYTES % 17.4 % (20.0-50.0); MEAN CORPUSCULAR HEMOGLOBIN 30.4 pg (28.0-32.0); MEAN CORPUSCULAR VOLUME 92.2 fL (81.0-99.0); MONOCYTES % 10.9 % (2.0-8.0); NEUTROPHILS % 69.5 % (40.0-76.0); RED BLOOD CELL COUNT 4.39 mill/uL (4.2-5.4)
[2019-11-26 13:43] LABS: PROTHROMBIN TIME 11.2 sec (9.6-11.0)
[2019-11-26 13:47] LABS: CHLORIDE 114 mEq/L (98-107)
[2019-11-26 14:02] LABS: BG BASE EXCESS -3.9 mmol/L (-2.0-2.0); BG CARBOXYHEMOGLOBIN 2.2 % (0.5-1.5); BG DEOXYHEMOGLOBIN 5.2 % (0.0-5.0); BG FRACTION INSPIRED OXYGEN 21; BG METHEMOGLOBIN 0.2 % (0.0-1.5); BG OXYGEN SATURATION 94.7 % (92.0-98.5); BG OXYHEMOGLOBIN 92.4 % (94.0-97.0); BG PCO2 28.9 mmHg (35.0-45.0); BG PH 7.436 (7.350-7.450); BG PO2 70.3 mmHg (75.0-100.0); BG SAMPLE SITE RIGHT RADIAL; BG TOTAL HEMOGLOBIN 13.6 g/dL (12.0-18.0); BG VENT MODE ROOM AIR
[2019-11-26 14:10] LABS: MEAN PLATELET VOLUME 8.8 fl (7.4-10.4); PLATELET 166 x1000/uL (130-400); PLATELET ESTIMATE NORMAL
[2019-11-26] MEDS ORDERED: GUAIFENESIN 200MG/10ML SUGAR FREE UDC PO PRN (15:15)
[2019-11-26] MEDS ORDERED: MAGNESIUM/ALUMINUM HYDROXIDE/SIMETHICONE 30ML UDC PO PRN (15:15)
[2019-11-26] MEDS ORDERED: CLONIDINE 0.1MG TABLET PO PRN (15:15)
[2019-11-26] MEDS ORDERED: ACETAMINOPHEN 325MG TABLET PO PRN (15:15)
[2019-11-26] MEDS ORDERED: HYDROMORPHONE HCL/PF 2MG/ML CPJ IV PRN (15:15)
[2019-11-26] MEDS ORDERED: DOCUSATE SODIUM 100MG CAPSULE PO PRN (15:15)
[2019-11-26] MEDS ORDERED: ONDANSETRON HCL 4MG/2ML INJ IV PRN (15:15)
[2019-11-26] MEDS ORDERED: LISINOPRIL 10MG TABLET PO SCH (15:15)
[2019-11-26] MEDS ORDERED: LOSARTAN POTASSIUM 50 MG TABLET PO NR (17:30)
[2019-11-26] MEDS ORDERED: AMLODIPINE 10MG TABLET PO NR (17:52)
[2019-11-26] MEDS ORDERED: ENOXAPARIN 40MG/0.4ML SYR SUBCUT NR (17:53)
[2019-11-26] MEDS: NITROGLYCERIN OINT 1GM/INCH UDPKT TD SCH (20:14)
[2019-11-26] MEDS: HYDROCODONE/ACETAMINOPHEN 5/325MG TABLET PO PRN (23:09)
[2019-11-27 00:13] LABS: CREATINE KINASE 82 IU/L (26-192); CREATINE KINASE MB FRACTION < 1.0 ng/mL (0.5-3.6)
[2019-11-27 04:52] LABS: BASOPHILS % 0.6 % (0.0-2.0); EOSINOPHILS % 1.2 % (0.0-5.0); HEMATOCRIT. 39.9 % (36.0-48.0); HEMOGLOBIN. 13.6 g/dL (12.0-16.0); LYMPHOCYTES % 13.7 % (20.0-50.0); MEAN CORPUSCULAR HEMOGLOBIN 30.6 pg (28.0-32.0); MEAN CORPUSCULAR VOLUME 90.1 fL (81.0-99.0); MEAN PLATELET VOLUME 8.2 fl (7.4-10.4); MONOCYTES % 9.7 % (2.0-8.0); NEUTROPHILS % 74.8 % (40.0-76.0); PLATELET 169 x1000/uL (130-400); RED BLOOD CELL COUNT 4.44 mill/uL (4.2-5.4); RED CELL DISTRIBUTION WIDTH 14.8 % (11.6-14.6)
[2019-11-27 04:56] LABS: CHLORIDE 107 mEq/L (98-107)
[2019-11-27 05:05] LABS: LDL CHOLESTEROL 55 mg/dL (5-100)
[2019-11-27 05:07] LABS: CREATINE KINASE 70 IU/L (26-192); HDL CHOLESTEROL 47 mg/dL (40-59)
[2019-11-27 05:10] LABS: CREATINE KINASE MB FRACTION < 1.0 ng/mL (0.5-3.6)
[2019-11-27 05:19] VITALS: BP 176/95
[2019-11-27 05:21] VITALS: BP 176/95
[2019-11-27] MEDS: NITROGLYCERIN OINT 1GM/INCH UDPKT TD SCH ×6 (05:57→20:32)
[2019-11-27 08:00] VITALS: BP 152/78
[2019-11-27] MEDS: HYDROCODONE/ACETAMINOPHEN 5/325MG TABLET PO PRN (08:00)
[2019-11-27] MEDS: FUROSEMIDE 40MG/4ML VIAL IV SCH (08:36)
[2019-11-27] MEDS: AMLODIPINE 10MG TABLET PO SCH (08:37)
[2019-11-27] MEDS: ASPIRIN 81MG EC TABLET PO SCH (08:37)
[2019-11-27] MEDS: ENOXAPARIN 30MG/0.3ML SYR SUBCUT SCH ×2 (08:37→20:31)
[2019-11-27] MEDS ORDERED: ENOXAPARIN 40MG/0.4ML SYR SUBCUT SCH (09:00)
[2019-11-27 12:00] VITALS: BP 165/66
[2019-11-27] MEDS: HYDRALAZINE HCL 25MG TABLET PO SCH ×4 (12:05→20:44)
[2019-11-27] MEDS: LOSARTAN POTASSIUM 50 MG TABLET PO SCH (12:05)
[2019-11-27] MEDS: LEVETIRACETAM 250MG TABLET PO SCH ×3 (12:05→20:49)
[2019-11-27 13:16] LABS: *AMPHETAMINES SCREEN URINE NEGATIVE (NEGATIVE); *BARBITURATES SCREEN URINE NEGATIVE (NEGATIVE); *BENZODIAZEPINES SCREEN URINE NEGATIVE (NEGATIVE)
[2019-11-27 13:17] LABS: CANNABINOID URINE SCREEN NEGATIVE (NEGATIVE); METHADONE URINE SCREEN NEGATIVE (NEGATIVE); OPIATES URINE SCREEN NEGATIVE (NEGATIVE); PHENCYCLIDINE URINE SCREEN NEGATIVE (NEGATIVE)
[2019-11-27 13:22] LABS: *COCAINE SCREEN URINE PRESUMTIVE POSITIVE (NEGATIVE)
[2019-11-27 16:00] VITALS: BP 147/79
[2019-11-27 20:00] VITALS: BP 149/88
[2019-11-27] MEDS: HYDRALAZINE HCL 50MG TABLET PO SCH ×2 (20:32→20:43)
[2019-11-28] VITALS: BP 136/82
[2019-11-28] MEDS: NITROGLYCERIN OINT 1GM/INCH UDPKT TD SCH ×4 (01:11→12:00)
[2019-11-28 04:00] VITALS: BP 138/86
[2019-11-28] MEDS: HYDROCODONE/ACETAMINOPHEN 5/325MG TABLET PO PRN (04:26)
[2019-11-28] MEDS: HYDRALAZINE HCL 25MG TABLET PO SCH (05:20)
[2019-11-28 08:00] VITALS: BP 135/80
[2019-11-28] MEDS: LOSARTAN POTASSIUM 50 MG TABLET PO SCH (08:43)
[2019-11-28] MEDS: HYDRALAZINE HCL 50MG TABLET PO SCH ×2 (08:43→08:48)
[2019-11-28] MEDS: AMLODIPINE 10MG TABLET PO SCH (08:43)
[2019-11-28] MEDS: FUROSEMIDE 40MG/4ML VIAL IV SCH ×2 (08:43→09:00)
[2019-11-28] MEDS: ASPIRIN 81MG EC TABLET PO SCH (08:43)
[2019-11-28] MEDS: ENOXAPARIN 30MG/0.3ML SYR SUBCUT SCH (08:44)
[2019-11-28] MEDS: LEVETIRACETAM 250MG TABLET PO SCH (08:47)
[2019-11-28 10:28] VITALS: BP 135/80
== END 2019-11-28 13:49 | disposition home or self-care (01) | DRG 291 ==
LOC: ER 12:41 → 7WST 14:55 → EDBEDREQSVC 15:01 → EDBEDREQ 15:01 → EDBEDREQSVC 21:06 → ENRESERV 11-27 04:06
PROVIDERS: ADMIT Hospitalist; ATTEND Hospitalist
DX: I13.0 Hypertensive heart and chronic kidney disease with heart failure and stage 1 through stage 4 chronic kidney disease, or unspecified chronic kidney disease (principal); I50.23 Acute on chronic systolic (congestive) heart failure; N17.9 Acute kidney failure, unspecified; I42.9 Cardiomyopathy, unspecified; J40 Bronchitis, not specified as acute or chronic; E11.22 Type 2 diabetes mellitus with diabetic chronic kidney disease; F14.10 Cocaine abuse, uncomplicated; F17.210 Nicotine dependence, cigarettes, uncomplicated; E78.00 Pure hypercholesterolemia, unspecified; G40.909 Epilepsy, unspecified, not intractable, without status epilepticus; N18.9 Chronic kidney disease, unspecified; Z86.73 Personal history of transient ischemic attack (TIA), and cerebral infarction without residual deficits; Z99.81 Dependence on supplemental oxygen; Z82.49 Family history of ischemic heart disease and other diseases of the circulatory system; Z88.6 Allergy status to analgesic agent; Z79.84 Long term (current) use of oral hypoglycemic drugs; Z79.899 Other long term (current) drug therapy; I25.2 Old myocardial infarction; Z71.51 Drug abuse counseling and surveillance of drug abuser
CPT/HCPCS: 36415; 36600; 71045; 80053; 80061; 80305; 82375; 82550; 82553; 82805; 83880; 84484; 85025; 85379; 93005; 93306; 93970; 94660; 99291; J1650; J1940; J2405